=== PATIENT | female | born 1965 | race Caucasian/White ===

== ENCOUNTER → 2023-03-12 09:45 | Outpatient (BNVA) | payer SELFPAY | PROVIDERS: Visit Provider Student in an Organized Health Care Education/Training Program | DX: Z98.890 Other specified postprocedural states (principal); G89.28 Other chronic postprocedural pain; M25.561 Pain in right knee | CPT/HCPCS: 73560; 73565 ==

== ENCOUNTER 2023-10-09 12:40 | Outpatient (CLI) | payer OTHER, SELFPAY ==
--- NOTE | 2023-10-09 12:44 | MM_ITS ---
WS: [id number] Bilateral screening 3D tomosynthesis digital mammogram, 10/09/2023 Clinical Data: SCREENING Comparison: None. Findings: The breast parenchymal pattern shows heterogeneous density. No spiculated masses or clustered calcifi cations are seen. There are no secondary signs of carcinoma. Impression: 1. Negative bilateral mammogram with no prior exam for review. 2. Recommend annual screening mammograms. MM/[place] [id number] BIRADS: 1-Negative FOLLOW UP: 1 Year Follow-up The CAD bag checker was used.
== END 2023-10-09 12:41 | disposition home or self-care (01) ==
LOC: RAD 12:41
PROVIDERS: Visit Provider Nurse Practitioner
DX: Z12.31 Encounter for screening mammogram for malignant neoplasm of breast (principal)
CPT/HCPCS: 77063; 77067

== ENCOUNTER → 2024-04-22 10:21 | Outpatient (CLI) | payer OTHER, SELFPAY ==
--- NOTE | 2024-04-22 11:03 | PETR_ITS ---
PROCEDURE INFORMATION: Exam: PET/CT Skull Base to Mid-thigh Exam date and time: 04/22/2024 10:54 AM Age: 58 years old Clinical indication: Abnormal findings; Abnormal ldct LABS AND CLINICAL REPORTS: Glucose: 89 mg/dl Treatment strategy for malignancy (PET staging): Initial Staging (PI) TECHNIQUE: Imaging protocol: Following at least four-hour fasting and following the injection of radiopharmaceutical, low dose CT images were obtained. Then, PET images were obtained. Attenuation corrected images were constructed using the CT scan. Fused images of PET and CT were reviewed. The standardized uptake values (SUV) reported below are maximum values within a region of interest, expressed in gm/ml. Exam includes orbital meatal line to mid-thigh. Radiopharmaceutical: 12.81 mCi F-18 FDG (Fluorodeoxyglucose), IV. Time of imaging post radiopharmaceutical administration: 1 hour Injection site: Right antecubital COMPARISON: [place] [id number] 10/09/2023 12:47 PM FINDINGS: Brain: Visualized brain has normal physiologic uptake. Pharynx: Elevated uptake within adenoidal tissue is diffuse, without a well-defined lesion on the CT images, SUV max 5.2, likely related to infectious or inflammatory changes. Uptake in the bilateral palatine tonsils is noted, likely inflammatory, SUV max 5.6 on the right and 5.3 on the left. Larynx: No abnormal uptake. Lungs, pleura and trachea: No abnormal uptake. Mild non radiotracer avid biapical pleural scarring is noted. There are small scattered, primarily peripheral noncalcified bilateral pulmonary nodules measuring up to 2-3 mm in diameter. For example, 3 mm nodule in the posterior aspect of the superior segment of the left lower lobe on series 3, image 66 is present and a posterior right lower lobe nodule on image 76 is noted. Heart: Normal physiologic uptake. Mediastinal space: No abnormal uptake. Liver: No abnormal uptake. Gallbladder and biliary ducts: No abnormal uptake. Pancreas: No abnormal uptake. Spleen: No abnormal uptake. Adrenal glands: No abnormal uptake. Kidneys and ureters: Normal physiologic uptake. Stomach and bowel: No abnormal uptake. Vasculature: No abnormal uptake. There are diffuse atherosclerotic changes. Lymph nodes: A prominent left axillary lymph node is noted measuring 2.4 x 1.9 cm, SUV max 1.4. A right subpectoral lymph node measures 2.0 x 1.4 cm on image 54, SUV max 1.3 Prominent mediastinal lymph nodes are present, for example adjacent to the left lateral aspect of the aortic arch anteriorly measuring 2.7 x 1.1 cm on image 67, SUV max 1.8. A left hilar lymph node measuring 1.6 cm on image 177 is present, SUV max 2.5. An azygoesophageal lymph node measures 1.8 x 1.1 cm on image 80, SUV max 2.3. Skeleton: Foci of uptake in the region of the hand and wrist are noted and are likely inflammatory/ degenerative, greatest in the region of the distal left ulna, SUV max 4.5. No correlating CT images through these regions were obtained. Soft tissues: No abnormal uptake in the visualized head, neck, chest, abdomen, pelvis, and extremities. METRICS: Mediastinal blood pool: SUV max 2.0 PET/PET skull to thigh INIT [id number] IMPRESSION: 1. Prominent left axillary, right subpectoral, mediastinal and left hilar lymph nodes are noted. The majority of these lymph nodes demonstrate uptake less than mediastinal blood pool activity with the exception of a left hilar lymph node (SUV max 2.5) and an azygoesophageal lymph node (SUV max 2.3).This appearance may be reactive, secondary to infectious or inflammatory involvement. Malignant involvement such as lymphoma cannot be entirely excluded. 2. Small scattered non radiotracer avid bilateral pulmonary nodules are present. Assessment of small nodules can be limited by PET-CT. 3. Foci of uptake in the region of the hands and wrists are likely related to inflammatory/degenerative, greatest in the region of the distal left ulna. No CT images through these regions were obtained. 4. Additional nonurgent findings as detailed above.
== END | disposition home or self-care (01) ==
LOC: RAD 10:20
PROVIDERS: Visit Provider Nurse Practitioner
DX: R91.8 Other nonspecific abnormal finding of lung field (principal); R93.89 Abnormal findings on diagnostic imaging of other specified body structures
CPT/HCPCS: 78815; A9552

== ENCOUNTER 2024-06-20 08:34 | Oncology outpatient (recurring) (ONCR) | payer OTHER, SELFPAY ==
[2024-06-20 10:16] LABS: Alanine Aminotransferase 17 U/L (0-33); Alkaline Phosphatase 113 U/L (35-105); Aspartate Amino Transferase 14 U/L (0-32); Blood Urea Nitrogen 7 mg/dL (6-20); C Reactive Protein 3.9 mg/L (0.0-4.9); Calcium 8.9 mg/dL (8.5-10.5); Carbon Dioxide 26 mmol/L (22-29); Chloride 105 mmol/L (98-107); Creatinine Clr Calc Pharmacy 137.6399; Globulin 2.9 g/dL (1.3-4.6); Glomerular Filtration Rate 127.2 mL/min (90-130); Glucose 86 mg/dL (65-115); Lactate Dehydrogenase 189 U/L (135-214); Osmolality Calculated 291 mOsm/kg (285-295); Sodium 142 mmol/L (136-145); Total Bilirubin 0.2 mg/dL (0.15-1.2); Total Protein 6.9 g/dL (6.6-8.7)
[2024-06-20 11:05] LABS: Basophils % 0.5 %; Eosinophils # 0.3 10^3/uL (0.0-0.8); Eosinophils % 3.3 %; Hematocrit 42.6 % (36-47); Lymphocytes # 4.3 10^3/uL (0.8-4.8); Lymphocytes % 52.1 %; Mean Corpuscular HGB Conc 34.3 g/dL (30-55); Mean Corpuscular Hemoglobin 33.3 pg (27-33); Mean Platelet Volume 9.6 fL (7.4-10.4); Monocytes # 0.4 10^3/uL (0.2-0.9); Monocytes % 5.3 %; Neutrophils # 3.16 10^3/uL (1.8-7.7); Neutrophils % 38.7 %; Nucleated Red Blood Cells % 0 %; Platelet Count 258 10^3/cmm (157-399); Red Blood Count 4.39 10^6/uL (3.85-5.65); Red Cell Distribution Width 13.4 % (12.1-15.1); White Blood Count 8.17 10^3/uL (3.29-11.43)
[2024-06-20 11:09] LABS: Erythrocyte Sedimentation Rate 13 mm/hr (0-15)
== END 2024-07-07 23:59 | disposition home or self-care (01) ==
PROVIDERS: Visit Provider Internal Medicine Medical Oncology
DX: M06.9 Rheumatoid arthritis, unspecified (principal); R59.1 Generalized enlarged lymph nodes; R91.8 Other nonspecific abnormal finding of lung field; F17.210 Nicotine dependence, cigarettes, uncomplicated; Z79.631 Long term (current) use of antimetabolite agent
CPT/HCPCS: 36415; 80053; 83615; 85025; 85651; 86140; 99204

== ENCOUNTER 2024-09-24 10:57 | Outpatient (CLI) | payer OTHER, SELFPAY ==
--- NOTE | 2024-09-24 11:00 | CTR_ITS ---
PROCEDURE INFORMATION: Exam: CT Chest With Contrast; Diagnostic Exam date and time: 09/24/2024 11:15 AM Age: 58 years old Clinical indication: Condition or disease; Lung condition and disease; Pulmonary nodule, solitary; Additional info: Multiple pulmonary nodules TECHNIQUE: Imaging protocol: Diagnostic computed tomography of the chest with contrast. Radiation optimization: All CT scans at this facility use at least one of these dose optimization techniques: automated exposure control; mA and/or kV adjustment per patient size (includes targeted exams where dose is matched to clinical indication); or iterative reconstruction. Contrast material: OMNI 350; Contrast volume: 100 ml; Contrast route: INTRAVENOUS (IV); COMPARISON: PT PET skull to thigh INIT [id number] 04/22/2024 10:54 AM RADIATION DOSE METRICS: Total DLP (mGy-cm): 387.37 FINDINGS: Lungs: Both lungs demonstrate diffuse interstitial coarsening which is felt to be chronic. No lung mass or infiltrate. Pleural spaces: Chronic pleural thickening involves the apices. Heart: Unremarkable. No cardiomegaly. No pericardial effusion. Lymph nodes: Mildly enlarged lymph nodes are noted in the mediastinum. A 2.5 cm lymph node is noted in the left upper mediastinum. A 2 cm lymph node is noted in the subcarinal space. A 2 cm lymph node is noted in the left hilum. Mildly prominent lymph nodes are noted in both axilla. The largest node measures 3 cm in diameter in the left axilla. Vasculature: Unremarkable. No aortic aneurysm. Bones/joints: Unremarkable. No acute fracture. Soft tissues: Unremarkable. CT/CT chest w con* [id number] IMPRESSION: 1. Stable mediastinal, hilar and axillary adenopathy 2. Mild chronic lung changes with no evidence of true lung nodule
[2024-09-24] MEDS: iohexol 350 mg/mL 500 mL Btl (per mL) IV (11:22)
== END 2024-09-24 10:58 | disposition home or self-care (01) ==
PROVIDERS: PCP Nurse Practitioner; Visit Provider Internal Medicine Medical Oncology
DX: R59.0 Localized enlarged lymph nodes (principal); R91.8 Other nonspecific abnormal finding of lung field; J92.9 Pleural plaque without asbestos
CPT/HCPCS: 71260

== ENCOUNTER 2024-09-25 13:22 | Oncology outpatient (recurring) (ONCR) | payer OTHER, SELFPAY ==
[2024-09-25 13:53] LABS: Basophils # 0.1 10^3/uL (0.0-0.1); Basophils % 0.6 %; Eosinophils # 0.3 10^3/uL (0.0-0.8); Eosinophils % 3.9 %; Hematocrit 40.3 % (36-47); Lymphocytes # 5.1 10^3/uL (0.8-4.8); Lymphocytes % 63.2 %; Mean Corpuscular Hemoglobin 33.3 pg (27-33); Mean Platelet Volume 9.4 fL (7.4-10.4); Monocytes # 0.4 10^3/uL (0.2-0.9); Monocytes % 4.7 %; Neutrophils # 2.23 10^3/uL (1.8-7.7); Neutrophils % 27.5 %; Nucleated Red Blood Cells % 0 %; Platelet Count 242 10^3/cmm (157-399); Red Blood Count 4.24 10^6/uL (3.85-5.65); Red Cell Distribution Width 13.3 % (12.1-15.1); White Blood Count 8.12 10^3/uL (3.29-11.43)
[2024-09-25 13:55] LABS: Erythrocyte Sedimentation Rate 8 mm/hr (0-15)
[2024-09-25 14:48] LABS: Alanine Aminotransferase 23 U/L (0-33); Albumin Level 3.9 g/dL (3.5-5.2); Alkaline Phosphatase 113 U/L (35-105); Anion Gap 14.6 (5-19); Aspartate Amino Transferase 18 U/L (0-32); Blood Urea Nitrogen 10 mg/dL (6-20); Calcium 8.7 mg/dL (8.5-10.5); Carbon Dioxide 24 mmol/L (22-29); Chloride 103 mmol/L (98-107); Globulin 2.6 g/dL (1.3-4.6); Glomerular Filtration Rate 127.2 mL/min (90-130); Glucose 90 mg/dL (65-115); Lactate Dehydrogenase 202 U/L (135-214); Osmolality Calculated 285 mOsm/kg (285-295); Potassium 3.6 mmol/L (3.5-5.1); Sodium 138 mmol/L (136-145); Total Bilirubin 0.2 mg/dL (0.15-1.2); Total Protein 6.5 g/dL (6.6-8.7)
== END 2024-10-07 23:59 | disposition home or self-care (01) ==
PROVIDERS: Nurse Practitioner; PCP Nurse Practitioner; Visit Provider Internal Medicine
DX: M06.9 Rheumatoid arthritis, unspecified (principal); R59.1 Generalized enlarged lymph nodes
CPT/HCPCS: 36415; 80053; 83615; 85025; 85651; 86140; 99214

== ENCOUNTER 2024-10-22 11:00 | Outpatient (CLI) | payer OTHER, SELFPAY ==
--- NOTE | 2024-10-22 11:08 | MM_ITS ---
WS: [id number] BILATERAL SCREENING DIGITAL TOMOSYNTHESIS MAMMOGRAM WITH CAD HISTORY: SCREENING COMPARISON: 10/09/2023 Bilateral CC and MLO views with tomosynthesis and synthetic mammography submitted. Computer aided det ection analyzed. Breast composition: The breasts are heterogeneously dense, which may obscure small masses. No suspici ous masses, microcalcifications or architectural distortion. Benign calcifications in each breast. MM/MM scr BI tomosynthesis [id number] IMPRESSION: BI-RADS: 2 - Benign FOLLOW UP: 1 Year Follow-up
== END 2024-10-22 11:01 | disposition home or self-care (01) ==
PROVIDERS: PCP Nurse Practitioner; Visit Provider Nurse Practitioner
DX: Z12.31 Encounter for screening mammogram for malignant neoplasm of breast (principal); R92.333 Mammographic heterogeneous density, bilateral breasts; R92.1 Mammographic calcification found on diagnostic imaging of breast; Z11.59 Encounter for screening for other viral diseases; Z11.1 Encounter for screening for respiratory tuberculosis; M05.79 Rheumatoid arthritis with rheumatoid factor of multiple sites without organ or systems involvement; Z79.899 Other long term (current) drug therapy; Z71.85 Encounter for immunization safety counseling
CPT/HCPCS: 36415; 77063; 77067; 86480; 86704; 86803; 87340; 99204

== ENCOUNTER 2025-03-03 11:57 | Outpatient (CLI) | payer OTHER, SELFPAY ==
[2025-03-03 13:09] LABS: Basophils % 0.3 %; Eosinophils # 0.1 10^3/uL (0.0-0.8); Eosinophils % 1.6 %; Hematocrit 40.1 % (36-47); Lymphocytes # 2.6 10^3/uL (0.8-4.8); Lymphocytes % 36.6 %; Mean Corpuscular HGB Conc 34.7 g/dL (30-55); Mean Corpuscular Hemoglobin 33.2 pg (27-33); Mean Corpuscular Volume 95.7 fl (85-98); Mean Platelet Volume 9.2 fL (7.4-10.4); Monocytes # 0.4 10^3/uL (0.2-0.9); Neutrophils # 3.97 10^3/uL (1.8-7.7); Neutrophils % 56.2 %; Nucleated Red Blood Cells % 0 %; Platelet Count 236 10^3/cmm (157-399); Red Blood Count 4.19 10^6/uL (3.85-5.65); Red Cell Distribution Width 13.3 % (12.1-15.1); White Blood Count 7.05 10^3/uL (3.29-11.43)
[2025-03-03 13:14] LABS: Erythrocyte Sedimentation Rate 9 mm/hr (0-15)
[2025-03-03 13:33] LABS: Alanine Aminotransferase 28 U/L (0-33); Alkaline Phosphatase 97 U/L (35-105); Aspartate Amino Transferase 26 U/L (0-32); Globulin 2.7 g/dL (1.3-4.6); Glomerular Filtration Rate 102.7 mL/min (90-130); Total Bilirubin 0.3 mg/dL (0.15-1.2); Total Protein 6.7 g/dL (6.6-8.7)
== END 2025-03-03 11:58 ==
LOC: LAB 11:58
PROVIDERS: PCP Nurse Practitioner; Visit Provider Internal Medicine Rheumatology
DX: M05.79 Rheumatoid arthritis with rheumatoid factor of multiple sites without organ or systems involvement (principal); Z79.899 Other long term (current) drug therapy; M06.9 Rheumatoid arthritis, unspecified
CPT/HCPCS: 36415; 80076; 82565; 85025; 85651; 86140; 99214

== ENCOUNTER 2025-03-26 12:43 | Oncology outpatient (recurring) (ONCR) | payer OTHER, SELFPAY ==
[2025-03-26 13:31] LABS: Basophils % 0.4 %; Eosinophils # 0.2 10^3/uL (0.0-0.8); Eosinophils % 2.6 %; Hematocrit 35.2 % (36-47); Lymphocytes % 56.6 %; Mean Corpuscular HGB Conc 34.9 g/dL (30-55); Mean Corpuscular Hemoglobin 32.9 pg (27-33); Mean Corpuscular Volume 94.1 fl (85-98); Mean Platelet Volume 9.2 fL (7.4-10.4); Monocytes # 0.3 10^3/uL (0.2-0.9); Monocytes % 4.3 %; Neutrophils % 35.8 %; Nucleated Red Blood Cells % 0 %; Platelet Count 212 10^3/cmm (157-399); Red Blood Count 3.74 10^6/uL (3.85-5.65); Red Cell Distribution Width 13.3 % (12.1-15.1); White Blood Count 6.98 10^3/uL (3.29-11.43)
[2025-03-26 13:35] LABS: Erythrocyte Sedimentation Rate 8 mm/hr (0-15)
[2025-03-26 13:55] LABS: Alanine Aminotransferase 35 U/L (0-33); Albumin Level 3.7 g/dL (3.5-5.2); Alkaline Phosphatase 95 U/L (35-105); Anion Gap 13.6 (5-19); Aspartate Amino Transferase 31 U/L (0-32); Blood Urea Nitrogen 7 mg/dL (6-20); C Reactive Protein 4.5 mg/L (0.0-4.9); Carbon Dioxide 25 mmol/L (22-29); Chloride 106 mmol/L (98-107); Globulin 2.7 g/dL (1.3-4.6); Glomerular Filtration Rate 126.7 mL/min (90-130); Glucose 93 mg/dL (65-115); Lactate Dehydrogenase 234 U/L (135-214); Osmolality Calculated 290 mOsm/kg (285-295); Potassium 3.6 mmol/L (3.5-5.1); Sodium 141 mmol/L (136-145); Total Bilirubin 0.2 mg/dL (0.15-1.2); Total Protein 6.4 g/dL (6.6-8.7)
== END 2025-04-06 23:59 | disposition home or self-care (01) ==
PROVIDERS: PCP Nurse Practitioner; Visit Provider Internal Medicine
DX: M06.9 Rheumatoid arthritis, unspecified (principal); R59.1 Generalized enlarged lymph nodes; R91.8 Other nonspecific abnormal finding of lung field; Z79.899 Other long term (current) drug therapy; Z71.6 Tobacco abuse counseling
CPT/HCPCS: 36415; 80053; 83615; 85025; 85651; 86140; 99213

== ENCOUNTER 2025-05-26 13:37 | Outpatient (CLI) | payer OTHER, SELFPAY ==
[2025-05-26 14:09] LABS: Hematocrit 38.7 % (36-47); Hemoglobin 13.30 g/dL (11.27-16.99); Mean Corpuscular HGB Conc 34.4 g/dL (30-55); Mean Corpuscular Hemoglobin 32.8 pg (27-33); Mean Corpuscular Volume 95.6 fl (85-98); Nucleated Red Blood Cells % 0 %; Platelet Count 227 10^3/cmm (157-399); Red Blood Count 4.05 10^6/uL (3.85-5.65); White Blood Count 6.68 10^3/uL (3.29-11.43)
[2025-05-26 14:37] LABS: Albumin Level 4.1 g/dL (3.5-5.2); Alkaline Phosphatase 100 U/L (35-105)
[2025-05-26 14:52] LABS: Aspartate Amino Transferase 29 U/L (0-32); Globulin 2.7 g/dL (1.3-4.6); Slide Review Slide Review Perform; Total Protein 6.8 g/dL (6.6-8.7)
[2025-05-26 16:30] LABS: Alanine Aminotransferase 41 U/L (0-33)
== END 2025-05-26 13:38 | disposition home or self-care (01) ==
LOC: LAB 13:43
PROVIDERS: PCP Nurse Practitioner; Visit Provider Internal Medicine Rheumatology
DX: Z79.899 Other long term (current) drug therapy (principal)
CPT/HCPCS: 36415; 80076; 82565; 85025; 85651; 86140

== ENCOUNTER 2025-07-15 12:21 | Outpatient (CLI) | payer OTHER, SELFPAY ==
[2025-07-15 13:02] LABS: Hematocrit 38.4 % (36-47); Hemoglobin 13.10 g/dL (11.27-16.99); Mean Corpuscular HGB Conc 34.1 g/dL (30-55); Mean Corpuscular Hemoglobin 32.7 pg (27-33); Mean Corpuscular Volume 95.8 fl (85-98); Nucleated Red Blood Cells % 0 %; Platelet Count 221 10^3/cmm (157-399); Red Blood Count 4.01 10^6/uL (3.85-5.65); White Blood Count 6.82 10^3/uL (3.29-11.43)
[2025-07-15 13:44] LABS: Alanine Aminotransferase 32 U/L (0-33); Albumin Level 4.0 g/dL (3.5-5.2); Alkaline Phosphatase 99 U/L (35-105); Aspartate Amino Transferase 24 U/L (0-32); Globulin 2.8 g/dL (1.3-4.6); Total Protein 6.8 g/dL (6.6-8.7)
== END 2025-07-15 12:22 | disposition home or self-care (01) ==
LOC: LAB 12:23
PROVIDERS: PCP Nurse Practitioner; Visit Provider Internal Medicine Rheumatology
DX: M05.79 Rheumatoid arthritis with rheumatoid factor of multiple sites without organ or systems involvement (principal); Z79.899 Other long term (current) drug therapy; Z71.85 Encounter for immunization safety counseling
CPT/HCPCS: 36415; 80076; 82565; 85025; 85651; 86140; 99214

== ENCOUNTER 2025-08-12 13:24 | Outpatient (CLI) | payer OTHER, SELFPAY ==
[2025-08-12 13:51] LABS: Hematocrit 41.1 % (36-47); Hemoglobin 14.30 g/dL (11.27-16.99); Mean Corpuscular HGB Conc 34.8 g/dL (30-55); Mean Corpuscular Hemoglobin 32.3 pg (27-33); Mean Corpuscular Volume 92.8 fl (85-98); Nucleated Red Blood Cells % 0 %; Platelet Count 215 10^3/cmm (157-399); Red Blood Count 4.43 10^6/uL (3.85-5.65); White Blood Count 7.46 10^3/uL (3.29-11.43)
[2025-08-12 14:14] LABS: Alanine Aminotransferase 17 U/L (0-33); Albumin Level 4.0 g/dL (3.5-5.2); Alkaline Phosphatase 124 U/L (35-105); Aspartate Amino Transferase 16 U/L (0-32); Globulin 3.7 g/dL (1.3-4.6); Total Protein 7.7 g/dL (6.6-8.7)
== END 2025-08-12 13:25 | disposition home or self-care (01) ==
LOC: LAB 13:25
PROVIDERS: PCP Nurse Practitioner; Visit Provider Internal Medicine Rheumatology
DX: Z79.899 Other long term (current) drug therapy (principal)
CPT/HCPCS: 36415; 80076; 82306; 82565; 85025; 85651; 86140

== ENCOUNTER 2025-09-24 13:15 | Oncology outpatient (recurring) (ONCR) | payer OTHER, SELFPAY ==
--- NOTE | 2025-09-17 11:00 | CT_ITS ---
WS: [id number] CT chest abdpel w/*[id number] REASON FOR EXAM: muktiple pulmonary nodules IV CONTRAST ADMINISTERED: 100 mL of Omnipaque 350. TECHNIQUE: Multiple axial images through the chest post intravenous contrast in the early portal venous phase. Post multiple axial images of the abdomen and pelvis post oral contrast and intravenous contrast later portal venous phase. TOTAL EXAM DLP: 1176.[address] scans at [facility] use at least one of these dose optimization techniques: automated exposure control; mA and/or kV adjustment per patient size (includes targeted exams where dose is matched to clinical indication); or iterative reconstruction. FINDINGS: CHEST The chest is unchanged compared to the previous examination. Small old presumed postinflammatory nodes are noted in the mediastinum. 12 x 14 mm lymph node in the left hilum is unchanged. There is a lymph node in the azygos esophageal region which is difficult to separate from the esophagus to measure. No change compared to the previous study. No measurable lung nodules. No lung mass. Areas of chronic reticular fibrotic appearing change in the subpleural regions of both lungs most notably near the lung bases. No acute pulmonary parenchymal or pleural abnormality. No significant abnormality of the bony thorax. ABDOMEN: No liver abnormality identified. Contracted gallbladder. Normal pancreas and spleen. Normal adrenals. Sub-2 mm intrarenal calculi on the right. Right kidney otherwise normal. Sub-3 mm left renal cyst left kidney otherwise unremarkable. No contrast within the renal collecting systems ureters or bladder. No abdominal mass, adenopathy, free fluid, or focal fluid collection. No bowel abnormality. PELVIS No mass, adenopathy, focal fluid collection, or free fluid. Uterus and urinary bladder are unremarkable. BONE Degenerative disc disease at L5-S1 lumbar spine otherwise unremarkable. Bony pelvis is unremarkable. CT/CT chest abdpel w/*[id number] IMPRESSION: Stable chest without significant interval change. No findings of neoplasia. No significant abnormality of the abdomen or pelvis.
[2025-09-17] MEDS: iohexol 350 mg/mL 500 mL Btl (per mL) IV (11:32)
[2025-09-17] MEDS: iohexol 350 mg/mL 500 mL Btl (per mL) PO (11:32)
[2025-09-24 13:25] LABS: Hematocrit 40.6 % (36-47); Hemoglobin 13.90 g/dL (11.27-16.99); Mean Corpuscular HGB Conc 34.2 g/dL (30-55); Mean Corpuscular Hemoglobin 31.4 pg (27-33); Mean Corpuscular Volume 91.9 fl (85-98); Nucleated Red Blood Cells % 0 %; Platelet Count 207 10^3/cmm (157-399); Red Blood Count 4.42 10^6/uL (3.85-5.65); White Blood Count 9.69 10^3/uL (3.29-11.43)
[2025-09-24 13:46] LABS: Alanine Aminotransferase 19 U/L (0-33); Albumin Level 3.8 g/dL (3.5-5.2); Alkaline Phosphatase 115 U/L (35-105); Anion Gap 15.8 (5-19); Aspartate Amino Transferase 21 U/L (0-32); Blood Urea Nitrogen 11 mg/dL (6-20); Calcium 8.7 mg/dL (8.5-10.5); Carbon Dioxide 23 mmol/L (22-29); Chloride 104 mmol/L (98-107); Globulin 2.9 g/dL (1.3-4.6); Glucose 141 mg/dL (65-115); Osmolality Calculated 290 mOsm/kg (285-295); Potassium 3.8 mmol/L (3.5-5.1); Sodium 139 mmol/L (136-145); Total Protein 6.7 g/dL (6.6-8.7)
== END 2025-10-07 23:59 | disposition home or self-care (01) ==
PROVIDERS: PCP Nurse Practitioner; Visit Provider Internal Medicine
DX: Z53.9 Procedure and treatment not carried out, unspecified reason; R59.1 Generalized enlarged lymph nodes; R91.8 Other nonspecific abnormal finding of lung field; F17.210 Nicotine dependence, cigarettes, uncomplicated; Z71.6 Tobacco abuse counseling; M06.9 Rheumatoid arthritis, unspecified
CPT/HCPCS: 36415; 71260; 74177; 80053; 85025; 99213